=== PATIENT | male | born 1955 | race Caucasian/White ===

== ENCOUNTER 2016-08-04 12:16 | Emergency (ER) | payer OTHER ==
[~2016-08-04] VITALS: Ht 162.6 cm; Wt 114.5 kg
[2016-08-04 12:33] VITALS: Ht 162.6 cm; Wt 114.5 kg
[2016-08-04] MEDS ORDERED: LIDOCAINE 1%/EPI (MDV) 20 ML INJ SC ONE ×2 (15:30)
[2016-08-04] MEDS ORDERED: LIDOCAINE 1%/EPI 30 ML INJ INJ ONE (15:30)
[2016-08-04] MEDS ORDERED: CEPH-443 PO (16:04)
[2016-08-04] MEDS ORDERED: BACTDS PO (16:04)
[2016-08-04] MEDS ORDERED: HYDR-902 PO (16:04)
--- NOTE | 2016-08-04 18:00 | ERD ---
ER Documentation Chief Complaint Date/Time DATE: 08/04/16 TIME: 17:57 Chief Complaint DESCRIBING ABSCESS ON HIS BACK THAT IS BOTHERING HIM HPI Patient is a 61-year-old male with hypertension and previous abscess who presents with a "infection on the back". It started on Tuesday. He says this 1 area has been worsening over the past few years but is much worse over the past few days. He tried [place]. There is no fever. His primary doctor is Dr. Sandoval. ROS All systems reviewed and are negative except as per history of present illness. Medications Home Meds Active Scripts Hydrocodone/Acetaminophen ([place] 10-325 Tablet) 1 Each Tablet, 1 TAB PO Q6H Y for PAIN, #7 TAB Prov:RAYMUNDO FELIPE MD 08/04/16 Cephalexin* (Keflex*) 500 Mg Capsule, 500 MG PO QID for 7 Days, CAP Prov:RAYMUNDO FELIPE MD 08/04/16 Sulfamethoxazole-Trimethoprim* (Bactrim* DS) 800-160 Mg Tab, 1 TAB PO BID for 7 Days, TAB Prov:RAYMUNDO FELIPE MD 08/04/16 Allergies Allergies: Coded Allergies: No Known Allergy (Unverified , 08/04/16) PMhx/Soc Medical and Surgical Hx: pt denies Medical Hx History of Surgery: Yes (cholecystectomy.) Hx Alcohol Use: Yes Hx Substance Use: No Hx Tobacco Use: Yes Smoking Status: Current every day smoker FmHx Family History: No diabetes Physical Exam Vitals Vital Signs Date Time Temp Pulse Resp B/P Pulse Ox O2 Delivery O2 Flow Rate FiO2 08/04/16 12:33 100.2 80 18 159/71 95 Physical Exam Const: Mild distress secondary to pain Head: Atraumatic Eyes: Normal Conjunctiva ENT: Normal External Ears, Nose and Mouth. Neck: Full range of motion..~ No meningismus. Resp: Clear to auscultation bilaterally Cardio: Regular rate and rhythm, no murmurs Abd: Soft, non tender, non distended. Normal bowel sounds Skin: Abscess with surrounding cellulitis to the posterior upper back Back: No midline or flank tenderness Ext: No cyanosis, or edema Neur: Awake and alert Psych: Normal Mood and Affect Results 24 hrs Current Medications Medications (Trade) Dose Ordered Sig/Akira Route PRN Reason Start Time Stop Time Status Last Admin Dose Admin Lidocaine/ Epinephrine (Xylocaine 1%/ Epi (Mdv) 20 ml) 20 ml ONCE ONCE SC 08/04/16 15:30 08/04/16 15:30 DC Lidocaine/ Epinephrine (Xylocaine 1%/ Epi) 20 ml ONCE ONCE INJ 08/04/16 15:30 08/04/16 15:31 DC Lidocaine/ Epinephrine (Xylocaine 1%/ Epi (Mdv) 20 ml) 30 ml ONCE ONCE SC 08/04/16 15:30 08/04/16 15:31 Cancel Procedures/MDM Abscess Incision and Drainage with irrigation by me: Location: Upper back Anesthesia: Local 1% Lidocaine with epinephrine Technique: Irrigated. Disrupted loculations w/ instrumentation Packing: None Complications: Neurovascularly intact post procedure 48 hour wound check. Scar minimization instructions given. Patient's skin symptoms have stabilized while they have been evaluated in the department and are appropriate for outpatient care and work up. Exam and w/u not consistent w/ sepsis, deep space infection, or foreign body. The patient has surrounding cellulitis and therefore will be given a prescription for Bactrim and Keflex. He will also be given a prescription for [place] for pain. Departure Diagnosis: Primary Impression: Sebaceous cyst Additional Impression: Abscess Condition: Fair Patient Instructions: Abscess, Incision And Drainage Referrals: Your doctor Additional Instructions: Call your primary care doctor TOMORROW for an appointment during the next 1-2 days.See the doctor sooner or return here if your condition worsens before your appointment time. RAYMUNDO FELIPE MD Aug 04, 2016 18:00
== END 2016-08-04 16:20 | disposition home or self-care (01) ==
LOC: FTE 12:16
DX: L72.3 Sebaceous cyst (principal); F17.210 Nicotine dependence, cigarettes, uncomplicated
CPT/HCPCS: 10061; Z7502; Z7610

== ENCOUNTER 2017-12-02 14:56 | Emergency (ER) | END 2017-12-02 17:55 | disposition home or self-care (01) ==